=== PATIENT | female | born 1980 | race Caucasian/White ===

== ENCOUNTER 2016-03-10 08:03 | Observation (INO) | payer OTHER ==
[~2016-03-10 08:03] MED LIST: IBUP-1547 PO; PREN1TAB80 PO
[2016-03-10 08:20] VITALS: BP 105/65
[2016-03-10 08:46] LABS: HEMOGLOBIN A1C 5.6 % (4.5-6.2)
[2016-03-10] MEDS ORDERED: GLYB2.5 PO (08:46)
== END 2016-03-10 09:50 | disposition home or self-care (01) ==
LOC: 4S 08:03
PROVIDERS: ADMIT Obstetrics & Gynecology; ATTEND Obstetrics & Gynecology
DX: O24.410 Gestational diabetes mellitus in pregnancy, diet controlled (principal); Z3A.37 37 weeks gestation of pregnancy
CPT/HCPCS: 36415; 59025; 82947; 83036; G0378

== ENCOUNTER 2016-03-21 09:10 | Inpatient (IN) | payer OTHER ==
[~2016-03-21] VITALS: Ht 163 cm; Wt 70.8 kg
[~2016-03-21 09:10] MED LIST changes: +EPHEDrine SULFATE 50 MG/ML VIAL IM ONE; +GLYB2.5 PO; +GLYCOPYRROLATE 0.2 MG/ML VIAL IM ONE; -IBUP-1547 PO; +ONDANSETRON HCL 4 MG/2 ML VIAL IVP ONE; +OXYTOCIN 10 UNITS/ML VIAL IM ONE
[2016-03-21] MEDS ORDERED: RINGERS SOLUTION,LACTATED 1,000 ML IV ONE (09:20)
[2016-03-21] MEDS ORDERED: METOCLOPRAMIDE HCL 5 MG/ML 2 ML VIAL IVP ONE (09:30)
[2016-03-21] MEDS ORDERED: CITRIC ACID/SODIUM CITRATE 30 ML SOLUTION UDCUP PO ONE (09:30)
[2016-03-21] MEDS ORDERED: FentaNYL/BUPIV 0.125%/NS/PF 200 ML ED ONE (10:42)
[2016-03-21] MEDS ORDERED: MORPHINE SULFATE/PF 1 MG/ML 10 ML AMP ONE (10:44)
[2016-03-21] MEDS ORDERED: MORPHINE SULFATE 10 MG/ML SYRINGE ONE (10:44)
[2016-03-21 10:47] LABS: BASOPHILS % (AUTO) 0.3 % (0.0-2.0); EOSINOPHILS % (AUTO) 0.7 % (1.0-6.0); HEMATOCRIT 36.5 % (36-46); HEMOGLOBIN 12.3 g/dL (12.0-16.0); LYMPHOCYTES # (AUTO) 1.5 K/uL (1.0-4.8); MEAN CORPUSCULAR HGB CONC 33.7 G/dL (31.0-37.0); MEAN CORPUSCULAR VOLUME 89 fL (80-100); MONOCYTES # (AUTO) 0.8 K/uL (0.1-1.0); MONOCYTES % (AUTO) 9.2 % (2.0-9.0); NEUTROPHILS # (AUTO) 6.3 K/uL (1.8-7.7); NEUTROPHILS % (AUTO) 72.8 % (40.0-70.0); PLATELET COUNT (AUTO) 193 K/uL (150-450); RED CELL DISTRIBUTION WIDTH 15.6 % (11.5-14.5); WHITE BLOOD COUNT (AUTO) 8.6 K/uL (4.5-11.0)
[2016-03-21] MEDS ORDERED: ONDANSETRON HCL 4 MG/2 ML VIAL IVP PRN (13:15)
[2016-03-21] MEDS ORDERED: NALBUPHINE HCL 10 MG/ML VIAL IVP PRN ×2 (13:15)
[2016-03-21] MEDS ORDERED: OXYGEN THERAPY IH SCH ×2 (13:15)
[2016-03-21] MEDS ORDERED: NALOXONE HCL 0.4 MG/ML VIAL IVP PRN (13:15)
[2016-03-21] MEDS ORDERED: DiphenhydrAMINE HCL 50 MG/ML VIAL IVP PRN (13:15)
[2016-03-21] MEDS ORDERED: ACETAMINOPHEN/CODEINE 300-30 MG TABLET PO PRN ×2 (13:30)
[2016-03-21] MEDS ORDERED: LANOLIN 7 GM OINTMENT TP PRN (13:30)
[2016-03-21 14:02] VITALS: BP 104/63
[2016-03-21] MEDS ORDERED: NALBUPHINE HCL 10 MG/ML VIAL ONE (14:09)
[2016-03-21] MEDS: MEPERIDINE-PF 25 MG/ML SYRINGE IVP PRN (14:16)
[2016-03-21] MEDS: NALBUPHINE HCL 10 MG/ML VIAL IVP SCH ×2 (14:17→21:54)
[2016-03-21] MEDS ORDERED: ONDANSETRON HCL 4 MG/2 ML VIAL ONE (14:31)
[2016-03-21] MEDS: DEXTROSE 5%-0.45% SODIUM CHL 1,000 ML IV SCH ×3 (15:35→22:11)
[2016-03-21] MEDS: FentaNYL CITRATE-PF 100 MCG/2 ML VIAL IVP PRN ×2 (15:35→18:13)
[2016-03-21] MEDS ORDERED: PROMETHAZINE HCL 25 MG/ML VIAL IM PRN (19:45)
[2016-03-21] MEDS: OXYGEN THERAPY IH SCH (20:00)
[2016-03-22] MEDS ORDERED: MIDAZOLAM HCL 2 MG/2 ML VIAL IVP ONE (00:23)
[2016-03-22] MEDS ORDERED: FentaNYL CITRATE-PF 100 MCG/2 ML VIAL IVP ONE (00:23)
[2016-03-22] MEDS: DEXTROSE 5%-0.45% SODIUM CHL 1,000 ML IV SCH (02:41)
[2016-03-22] MEDS: NALBUPHINE HCL 10 MG/ML VIAL IVP SCH (04:55)
[2016-03-22] MEDS ORDERED: IBUPROFEN 800 MG TABLET PO SCH (07:00)
[2016-03-22] MEDS ORDERED: KETOROLAC TROMETHAMINE 30 MG/ML VIAL IVP ONE (08:15)
[2016-03-22] MEDS: MAGNESIUM HYDROXIDE SUSPENSION 30 ML UDCUP PO SCH ×2 (10:13→20:22)
[2016-03-22] MEDS: FentaNYL CITRATE-PF 100 MCG/2 ML VIAL IVP PRN (10:14)
[2016-03-22] MEDS: IBUPROFEN 800 MG TABLET PO SCH ×2 (12:02→19:12)
[2016-03-22] MEDS ORDERED: HYDROmorphone 2 MG/ML SYRINGE IVP ONE (15:15)
[2016-03-22] MEDS: MEPERIDINE-PF 25 MG/ML SYRINGE IVP PRN (15:41)
[2016-03-22] MEDS ORDERED: MORPHINE SULFATE 10 MG/ML SYRINGE IM PRN (19:30)
[2016-03-22] MEDS: OXYGEN THERAPY IH SCH (20:22)
[2016-03-23] MEDS: IBUPROFEN 800 MG TABLET PO SCH ×4 (00:56→21:05)
[2016-03-23] MEDS: OXYGEN THERAPY IH SCH (06:34)
[2016-03-23] MEDS: BUTALBITAL/ACETAMINOPHEN/CAFFEINE 50-325-40 MG TABLET PO PRN (08:22)
[2016-03-23] MEDS: MAGNESIUM HYDROXIDE SUSPENSION 30 ML UDCUP PO SCH (09:34)
[2016-03-23] MEDS ORDERED: RINGERS SOLUTION,LACTATED 1,000 ML IV ONE (11:30)
[2016-03-24] MEDS: IBUPROFEN 800 MG TABLET PO SCH ×2 (02:41→10:57)
[2016-03-24] MEDS: SIMETHICONE 80 MG CHEWABLE TABLET CHEW PRN ×2 (03:03→10:11)
[2016-03-24] MEDS: BUTALBITAL/ACETAMINOPHEN/CAFFEINE 50-325-40 MG TABLET PO PRN (06:37)
[2016-03-24] MEDS: NALBUPHINE HCL 10 MG/ML VIAL IVP SCH (08:00)
[2016-03-24] MEDS: OXYGEN THERAPY IH SCH (08:00)
[2016-03-24] MEDS ORDERED: RINGERS SOLUTION,LACTATED 1,000 ML IV ONE (08:50)
[2016-03-24] MEDS: MAGNESIUM HYDROXIDE SUSPENSION 30 ML UDCUP PO SCH (09:00)
[2016-03-24] MEDS ORDERED: DSS100 PO (14:21)
[2016-03-24] MEDS ORDERED: IBUP-2070 PO (14:21)
[2016-03-24] MEDS ORDERED: HYDR-309 (14:21)
== END 2016-03-24 15:00 | disposition home or self-care (01) | DRG 766 ==
LOC: OBSVTOIN 09:10 → 4S 09:10
PROVIDERS: ADMIT Obstetrics & Gynecology; ATTEND Obstetrics & Gynecology
PROC: 10D00Z1 Extraction of Products of Conception, Low, Open Approach (ICD-10-PCS; principal; 2016-03-21)
DX: O32.1XX0 Maternal care for breech presentation, not applicable or unspecified (principal); O99.284 Endocrine, nutritional and metabolic diseases complicating childbirth; E03.9 Hypothyroidism, unspecified; O09.523 Supervision of elderly multigravida, third trimester; Z3A.39 39 weeks gestation of pregnancy; Z37.0 Single live birth
CPT/HCPCS: 86850; 86900; 86901; 87081; J0690; J1885; J2175; J2250; J2270; J2300; J2405; J2550; J2590; J2765; J3010; J3490; J7120

== ENCOUNTER 2020-02-19 13:48 | Observation (INO) | payer OTHER ==
[~2020-02-19] VITALS: Ht 163 cm; Wt 68.9 kg
[~2020-02-19 13:48] MED LIST changes: +DSS100 PO; -EPHEDrine SULFATE 50 MG/ML VIAL IM ONE; -GLYB2.5 PO; -GLYCOPYRROLATE 0.2 MG/ML VIAL IM ONE; +HYDR-309; +IBUP-2070 PO; -ONDANSETRON HCL 4 MG/2 ML VIAL IVP ONE; -OXYTOCIN 10 UNITS/ML VIAL IM ONE
[2020-02-19 14:20] VITALS: BP 103/67
[2020-02-19] MEDS ORDERED: FOLI-130 PO (14:22)
[2020-02-19] MEDS ORDERED: OMEG10005 PO (14:22)
[2020-02-19] MEDS ORDERED: METF-961 PO (14:34)
== END 2020-02-19 15:05 | disposition home or self-care (01) ==
LOC: 4S 13:48
PROVIDERS: ADMIT Obstetrics & Gynecology; ATTEND Obstetrics & Gynecology
DX: O09.523 Supervision of elderly multigravida, third trimester (principal); Z3A.37 37 weeks gestation of pregnancy
CPT/HCPCS: 59025; 83036; 99219

== ENCOUNTER 2020-02-27 13:58 | Observation (INO) | payer OTHER ==
[~2020-02-27 13:58] MED LIST changes: -DSS100 PO; +FOLI-130 PO; -HYDR-309; -IBUP-2070 PO; +METF-961 PO; +OMEG10005 PO
[2020-02-27 14:31] LABS: COVID AG,FIA SOURCE NASOPHARYNGEAL
== END 2020-02-27 14:03 | disposition home or self-care (01) ==
LOC: 4S 13:58
PROVIDERS: ADMIT Obstetrics & Gynecology; ATTEND Obstetrics & Gynecology
DX: O09.523 Supervision of elderly multigravida, third trimester (principal); Z20.828 Contact with and (suspected) exposure to other viral communicable diseases; Z3A.38 38 weeks gestation of pregnancy
CPT/HCPCS: 87426; 99219

== ENCOUNTER 2020-02-28 06:52 | Inpatient (IN) | payer OTHER ==
[~2020-02-28] VITALS: Ht 157.5 cm; Wt 68.5 kg
[2020-02-28 07:00] VITALS: BP 105/72
[2020-02-28] MEDS ORDERED: CITRIC ACID/SODIUM CITRATE 30 ML SOLUTION UDCUP PO ONE (07:00)
[2020-02-28] MEDS ORDERED: RINGERS SOLUTION,LACTATED 1,000 ML IV ONE ×2 (07:00→07:43)
[2020-02-28] MEDS ORDERED: METOCLOPRAMIDE HCL 5 MG/ML 2 ML VIAL IVP ONE (07:00)
[2020-02-28] MEDS ORDERED: SODIUM CHLORIDE 0.9% 1,000 ML ONE (07:43)
[2020-02-28] MEDS ORDERED: BUPIVACAINE HCL/DEX-WATER/PF 0.75% 2 ML AMP ITH ONE (07:43)
[2020-02-28 08:31] LABS: BASOPHILS % (AUTO) 0.4 % (0.0-2.0); EOSINOPHILS % (AUTO) 1.1 % (1.0-6.0); HEMATOCRIT 33.1 % (36-46); LYMPHOCYTES # (AUTO) 1.4 K/uL (1.0-4.8); LYMPHOCYTES % (AUTO) 19.2 % (22.0-44.0); MEAN CORPUSCULAR HEMOGLOBIN 27.8 pg (26.0-34.0); MEAN CORPUSCULAR HGB CONC 33.2 G/dL (31.0-37.0); MEAN CORPUSCULAR VOLUME 84 fL (80-100); MONOCYTES # (AUTO) 0.6 K/uL (0.1-1.0); MONOCYTES % (AUTO) 8.3 % (2.0-9.0); NEUTROPHILS # (AUTO) 5.1 K/uL (1.8-7.7); PLATELET COUNT (AUTO) 248 K/uL (150-450); RED BLOOD CELL COUNT(AUTO) 3.95 MIL/uL (4.00-5.20); RED CELL DISTRIBUTION WIDTH 15.3 % (11.5-14.5)
[2020-02-28] MEDS ORDERED: MEPERIDINE-PF 25 MG/ML VIAL IVP PRN (08:45)
[2020-02-28] MEDS ORDERED: FentaNYL CITRATE PF 100 MCG/2 ML VIAL IVP PRN ×4 (08:45→11:00)
[2020-02-28] MEDS ORDERED: HYDROmorphone 2 MG/ML SYRINGE IVP PRN (08:45)
[2020-02-28] MEDS ORDERED: LANOLIN 7 GM OINTMENT TP PRN (10:45)
[2020-02-28] MEDS ORDERED: ACETAMINOPHEN/CODEINE 300-30 MG TABLET PO PRN (10:45)
[2020-02-28] MEDS ORDERED: ONDANSETRON HCL 4 MG/2 ML VIAL IVP PRN (11:00)
[2020-02-28] MEDS ORDERED: NALBUPHINE HCL 10 MG/ML VIAL IVP PRN ×2 (11:00)
[2020-02-28] MEDS ORDERED: MORPHINE SULFATE 10 MG/ML SYRINGE IVP PRN (11:00)
[2020-02-28] MEDS ORDERED: NALOXONE HCL 0.4 MG/ML VIAL IVP PRN (11:00)
[2020-02-28] MEDS ORDERED: DiphenhydrAMINE HCL 50 MG/ML VIAL IVP PRN (11:00)
[2020-02-28] MEDS ORDERED: OXYTOCIN 10 UNITS/ML VIAL IM ONE (12:00)
[2020-02-28] MEDS ORDERED: 0.9% SODIUM CHLORIDE 10 ML VIAL IVP ONE (12:00)
[2020-02-28] MEDS ORDERED: FentaNYL CITRATE PF 100 MCG/2 ML VIAL IVP ONE (12:00)
[2020-02-28] MEDS ORDERED: EPHEDrine SULFATE 50 MG/ML VIAL IM ONE (12:00)
[2020-02-28] MEDS ORDERED: MORPHINE SULFATE/PF 0.5 MG/ML 10 ML AMP IVP ONE (12:00)
[2020-02-28] MEDS ORDERED: ONDANSETRON HCL 4 MG/2 ML VIAL IVP ONE (12:00)
[2020-02-28] MEDS ORDERED: KETOROLAC TROMETHAMINE 60 MG/2 ML VIAL IM ONE (12:00)
[2020-02-28] MEDS ORDERED: GENTAMICIN SULFATE 160 MG in DEXTROSE 5%-WATER 50 ML IV ONE (12:15)
[2020-02-28] MEDS: ACETAMINOPHEN 1000 MG/ISO-OSM 100 ML IV SCH ×2 (14:30→22:48)
[2020-02-28] MEDS: KETOROLAC TROMETHAMINE 30 MG/ML VIAL IVP SCH ×2 (16:07→21:44)
[2020-02-28] MEDS: DEXTROSE 5%-0.45% SODIUM CHL 1,000 ML IV SCH ×2 (17:45→21:42)
[2020-02-28] MEDS ORDERED: OXYGEN THERAPY IH SCH ×3 (20:00)
[2020-02-29] MEDS: DEXTROSE 5%-0.45% SODIUM CHL 1,000 ML IV SCH ×2 (01:26→05:28)
[2020-02-29] MEDS: IBUPROFEN 800 MG TABLET PO SCH ×4 (02:45→20:58)
[2020-02-29] MEDS: MAGNESIUM HYDROXIDE SUSPENSION 30 ML UDCUP PO SCH ×2 (07:54→18:30)
[2020-02-29] MEDS: ACETAMINOPHEN/CODEINE 300-30 MG TABLET PO PRN (10:13)
[2020-03-01] MEDS: IBUPROFEN 800 MG TABLET PO SCH ×4 (02:30→22:06)
[2020-03-01] MEDS: MAGNESIUM HYDROXIDE SUSPENSION 30 ML UDCUP PO SCH ×2 (08:44→21:05)
[2020-03-01] MEDS: ACETAMINOPHEN/CODEINE 300-30 MG TABLET PO PRN (12:36)
[2020-03-01] MEDS ORDERED: BISACODYL 10 MG RECTAL RECTAL SUPPOSITORY PR ONE (17:00)
[2020-03-02] MEDS: IBUPROFEN 800 MG TABLET PO SCH ×2 (03:53→10:43)
[2020-03-02] MEDS ORDERED: LANOLIN 7 GM OINTMENT TP PRN (07:00)
[2020-03-02] MEDS ORDERED: DEXTROSE 5%-0.45% SODIUM CHL 1,000 ML IV SCH (07:00)
[2020-03-02] MEDS ORDERED: SENNA/DOCUSATE SODIUM 8.6-50 MG TABLET PO ONE (07:00)
[2020-03-02] MEDS ORDERED: IBUP-2071 PO (09:05)
== END 2020-03-02 11:35 | disposition home or self-care (01) | DRG 785 ==
LOC: 4S 06:52 → PREOBSVTOIN 04-09 07:12
PROVIDERS: ADMIT Obstetrics & Gynecology; ATTEND Obstetrics & Gynecology
PROC: 10D00Z1 Extraction of Products of Conception, Low, Open Approach (ICD-10-PCS; principal; 2020-02-28)
PROC: 0UB70ZZ Excision of Bilateral Fallopian Tubes, Open Approach (ICD-10-PCS; 2020-02-28)
DX: O34.211 Maternal care for low transverse scar from previous cesarean delivery (principal); O24.429 Gestational diabetes mellitus in childbirth, unspecified control; Z3A.39 39 weeks gestation of pregnancy; O09.523 Supervision of elderly multigravida, third trimester; Z37.0 Single live birth
CPT/HCPCS: 86850; 86900; 86901; 86923; 87081; 88302; J0131; J0690; J1580; J1885; J2274; J2405; J2590; J2765; J3010; J3490; J7030; J7060; J7120